=== PATIENT | female | born 1990 ===

== ENCOUNTER 2018-03-29 20:13 | Emergency (ER) | payer SELFPAY ==
[2018-03-29 20:27] VITALS: BP 122/77; PULSE 73; O2SAT 100
[2018-03-29 20:58] VITALS: RESP 17; TEMP 97.8
--- NOTE | 2018-03-29 21:13 | ED PDOC ---
Arrival/HPI - General Historian: Patient - History of Present Illness Time/Duration: 4-6 hours Symptom Course: Resolved Activities at Onset: Light Context: Work <Buffy Mujica - Last Filed: 03/29/18 22:09> <Leobardo Whiteside DO - Last Filed: 03/29/18 22:27> - General Chief Complaint: Dizziness/Lightheaded Time Seen by Provider: 03/29/18 20:32 - History of Present Illness Narrative History of Present Illness (Text): 03/29/18 21:09 This is a 27 year old female with no PMH presenting to the ER for one episode of right arm numbness, facial numbness and nausea that occurred at work earlier today. Patient states that the AC was not working and she felt very hot while at work and subsequently developed sudden onset of right arm numbness, facial forehead numbness and nausea. Symptoms spontaneously resolved shortly after onset. Patient denies similar episode in the past. She is currently asymptomatic. She denies chest pain, SOB, headaches, abdominal pain, muscle weakness, urinary complaints, vomiting, hematemesis, hematochezia, melena, leg swelling, recent sickness and recent travel. LMP was about one month ago and cycles are irregular. Currently taking no medications. PCP: none (Buffy Mujica) Past Medical History - Provider Review Nursing Documentation Reviewed: Yes - Psychiatric Hx Substance Use: No <Buffy Mujica - Last Filed: 03/29/18 22:09> Family/Social History - Physician Review Nursing Documentation Reviewed: Yes Family/Social History: Unknown Family HX Smoking Status: Never Smoked Hx Alcohol Use: Yes Frequency of alcohol use: Socially Hx Substance Use: No <Buffy Mujica - Last Filed: 03/29/18 22:09> Allergies/Home Meds <Buffy Mujica - Last Filed: 03/29/18 22:09> <Leobardo Whiteside DO - Last Filed: 03/29/18 22:27> Allergies/Adverse Reactions: Allergies No Known Allergies Allergy (Verified 03/29/18 20:24) Home Medications: Home Meds Medication Instructions Recorded Confirmed No Known Home Med 03/29/18 03/29/18 Review of Systems - Physician Review All systems were reviewed & negative as marked: Yes - Review of Systems Constitutional: Normal. absent: Fevers Eyes: Normal. absent: Vision Changes ENT: Normal. absent: Hearing Changes Respiratory: Normal. absent: SOB Cardiovascular: Normal. absent: Chest Pain, Palpitations Gastrointestinal: Nausea. absent: Abdominal Pain, Constipation, Diarrhea, Vomiting, Hematochezia, Hematemesis Genitourinary Female: Normal Musculoskeletal: Normal. absent: Joint Swelling Skin: Normal. absent: Rash Neurological: Other (one episode of right arm numbness anf forehead numbness). absent: Headache, Dizziness Psychiatric: Normal <Buffy Mujica - Last Filed: 03/29/18 22:09> Physical Exam Vital Signs Reviewed: Yes Temperature: Afebrile Blood Pressure: Normal Pulse: Regular Respiratory Rate: Normal Appearance: Positive for: Well-Appearing, Non-Toxic, Comfortable Pain Distress: None Mental Status: Positive for: Alert and Oriented X 3 - Systems Exam Head: Present: Atraumatic, Normocephalic Pupils: Present: PERRL Extroacular Muscles: Present: EOMI Conjunctiva: Present: Normal Mouth: Present: Moist Mucous Membranes Neck: Present: Normal Range of Motion Respiratory/Chest: Present: Clear to Auscultation, Good Air Exchange. No: Respiratory Distress, Accessory Muscle Use Cardiovascular: Present: Regular Rate and Rhythm, Normal S1, S2. No: Murmurs Abdomen: Present: Normal Bowel Sounds. No: Tenderness, Distention, Peritoneal Signs, Rebound, Guarding Back: Present: Normal Inspection Upper Extremity: Present: Normal Inspection. No: Cyanosis, Edema Lower Extremity: Present: Normal Inspection. No: Edema Neurological: Present: GCS=15, CN II-XII Intact, Speech Normal, Motor Func Grossly Intact, Normal Sensory Function, Gait Normal, Memory Normal Skin: Present: Warm, Dry, Normal Color. No: Rashes Psychiatric: Present: Alert, Oriented x 3, Normal Insight, Normal Concentration <Buffy Mujica - Last Filed: 03/29/18 22:09> Vital Signs Temp Pulse Resp BP Pulse Ox 03/29/18 20:24 97.8 F 73 17 122/77 100 Medical Decision Making <Buffy Mujica - Last Filed: 03/29/18 22:09> <Leobardo Whiteside DO - Last Filed: 03/29/18 22:27> ED Course and Treatment: 03/29/18 21:15 Impression: This is a 27 year old female with no PMH presenting to the ER for one episode of right arm numbness, facial numbness and nausea that occurred at work earlier today. Differential not limited to: Heat exhaustion vs dehydration vs gastroenteritis vs multiple sclerosis Plan: Blood work, , U/A Progress: Patient left AMA. Refused to have blood drawn, understands risk of leaving. ( Buffy Mujica) 03/29/18 Patient Seen With Resident: In agreement with resident note which contains more details about the patient. Patient was seen and evaluated with resident. Came up with plan and treatment together. (Leobardo Whiteside DO) - PA / [employer] ATTENDANT / Resident Statement RICARDO has reviewed & agrees with the documentation as recorded. / has examined the patient and agrees with the treatment plan. <Buffy Mujica - Last Filed: 03/29/18 22:09> Disposition/Present on Arrival - Present on Arrival Any Indicators Present on Arrival: No History of DVT/PE: No History of Uncontrolled Diabetes: No Urinary Catheter: No History of Decub. Ulcer: No History Surgical Site Infection Following: None - Disposition Have Diagnosis and Disposition been Completed?: Yes Disposition Time: 21:00 <Buffy Mujica - Last Filed: 03/29/18 22:09> - Disposition Disposition Time: 20:40 <Leobardo Whiteside DO - Last Filed: 03/29/18 22:27> - Disposition Diagnosis: Dehydration Disposition: AGAINST MEDICAL ADVICE Condition: UNKNOWN Forms: [facility] (German)
== END 2018-03-29 21:00 | disposition left against medical advice (07) ==
LOC: ED 20:13
DX: E86.0 Dehydration (principal)